=== PATIENT | female | born 1965 | race Caucasian/White ===

== ENCOUNTER 2017-07-13 12:58 | Emergency (ER) | payer BC ==
[~2017-07-13] VITALS: Ht 157.5 cm; Wt 43.0 kg
[2017-07-13] MEDS ORDERED: MOTRIN600 MG PO (14:49)
[2017-07-13] MEDS ORDERED: LIDODERM 5% P1 PATCH TD (14:49)
[2017-07-13] MEDS ORDERED: PREDNISONE20 MG PO (14:49)
[2017-07-13] MEDS ORDERED: FLEXERIL10 MG PO (14:49)
[2017-07-13 15:38] VITALS: BP 159/100
== END 2017-07-13 15:39 | disposition home or self-care (01) ==
LOC: EME 12:58
DX: M54.42 Lumbago with sciatica, left side (principal); F17.200 Nicotine dependence, unspecified, uncomplicated; Z88.0 Allergy status to penicillin
CPT/HCPCS: 72100; 99281; 99284; J1885; J2270; J7512